=== PATIENT | male | born 2000 | race Two or more races ===

== ENCOUNTER 2023-02-11 13:41 | Outpatient (REF) | payer OTHER, SELFPAY ==
--- NOTE | ~2023-02-11 | MR_ITS ---
EXAMINATION: MR BRAIN WITHOUT AND WITH CONTRAST CLINICAL INFORMATION: Epilepsy. COMPARISON: None. TECHNIQUE: Multiplanar, multisequence imaging of the brain was acquired on a 3 Leslye magnet before and after the intravenous administration of 7 mL of Gadavist. FINDINGS: No diffusion abnormalities are identified to suggest an acute infarct. The ventricles are normal in size. No mass effect or midline shift is seen. No brain parenchymal signal abnormality is noted. No extra-axial fluid collections are seen. The brainstem and cerebellum are normal. There is no abnormal parenchymal or leptomeningeal enhancement. No focal cortical dysplasia or migrational abnormality is seen. The hippocampi are normal in appearance. The gradient refocused acquisition demonstrates no pathologic magnetic susceptibility artifact to indicate underlying acute or chronic blood products. The craniovertebral junction, marrow signal, and midline structures are normal. The orbits and pituitary axis appear normal. The major intracranial flow voids at the level of the picayune of Lang are preserved. The dural venous sinus flow voids are maintained. The mastoid air cells are well aerated. There is mild mucosal thickening in the ethmoid air cells. MR/MR head/brain wo/w con IMPRESSION: Normal study. No epileptogenic focus identified. No hippocampal pathology.
[2023-02-11] MEDS: gadobutroL 7.5 ML VIAL IVPUSH (14:54)
== END 2023-02-11 13:42 | disposition home or self-care (01) ==
LOC: HO.MRI 13:41
PROVIDERS: Visit Provider Psychiatry & Neurology Neurology
DX: G40.909 Epilepsy, unspecified, not intractable, without status epilepticus (principal)
CPT/HCPCS: 70553; A9585

== ENCOUNTER 2024-09-29 12:36 | Outpatient (AMB) | payer OTHER, SELFPAY ==
--- NOTE | 2024-09-29 12:49 | MHC.OFFVIS ---
Intake Visit Reasons: f/u sz Allergies No Known Allergies Allergy (Verified 09/28/24 16:32) HPI Comments Details: 23 yo RH man, originally from [facility] with a few years of schooling, using marijuana for treatment of anxiety, and epilepsy. In 2020, he was found to have generalized seizure at home with generalized convulsion and frothing by his girlfriend. He was taken to [facility] and before that when EMT arrived he had another seizure. Video EEG monitoring at that time revealed generalized slowing. Also, he was using tramadol at that time. He stopped tramadol but continued to have seizure. He had another seizure in May of 2022 when he was not taking medicine. He was last seen in 2022 adn was here today saying that he had 3 seizures yesterday and one in July, while he was taking his meds regularly. He was passing out with seizures. [facility]LY [facility], [facility] Medical History (Updated 09/29/24 @ 13:03 by Ana Severino MD) Epilepsy Seizure disorder Review of Systems Const Details: Constitutional:?No fever, chills, fatigue, weight loss, or night sweats. HEENT:?No headache, vision changes, hearing loss, nasal congestion, sore throat. Neurological:?No dizziness, syncope, seizures, numbness, tingling, weakness, tremors, memory loss. Psychiatric:?No anxiety, depression, mood swings, sleep disturbance, or hallucinations. Endocrine:?No heat/cold intolerance, polydipsia, polyuria, or hair/skin changes. Hematologic/Lymphatic:?No easy bruising, bleeding, or lymphadenopathy. Integumentary (Skin):?No rash, lesions, itching, or color changes. ? Physical Exam Const Other: General: No acute distress. Cardiovascular: Regular rate and rhythm. Respiratory: Clear to auscultation bilaterally. Abdomen: Soft, non-tender, non-distended. Musculoskeletal: Full range of motion. No joint swelling or deformities. Skin: Warm, dry, intact. No rashes or lesions. Neuro Other: Mental Status: Alert and oriented to person, place, and time. Normal attention. Normal spontaneous speech, fluency, and comprehension. No obvious issues with mood and memory. Affect is appropriate. Cranial Nerves: CN II: Visual hall full to confrontation, visual acuity intact. CN III, IV, : Pupils equal, round, reactive to light and accommodation. Extraocular movements are normal. CN V: Facial sensation is normal. CN VII: Facial movements symmetrical. CN VIII: Hearing intact to bedside conversation is normal. CN IX, X: Palate elevates symmetrically. CN XI: Shoulder shrug and head turn symmetrical. CN XII: Tongue midline without atrophy or fasciculations. Motor: Bulk and tone normal in all extremities. No significant muscle weakness in arms and legs. No drift. Reflexes: Deep tendon reflexes 2+ and symmetric. Plantar response down-going bilaterally. Coordination: [id number] and bklc-[id number] testing normal. No dysmetria. Gait and Station: No obvious gait abnormality. No ataxia or instability. Sensory: Intact to light touch, pinprick, and vibration. Romberg is negative. Extrapyramidal: Full facial expressions and blinking. No rigidity. Movements are appropriate with no tremor or abnormality. Speech: Normal; no dysarthria or tremor. Results Reviewed Results Reviewed: EEG at [facility] in May 2021: bifrontal, generalized and somtimes right hemispheric sharp wavesVideo EEG at [facility] in 2020: generalized slowing CT brain WO at [facility] in 2020: WNL. MRI brain WWO at [facility] in 2022: WNL Assessment & Plan Assessment & Plan (1) Epilepsy: Code(s): G40.909 - Epilepsy, unspecified, not intractable, without status epilepticus Category: Medical Qualifiers: Epilepsy type: generalized idiopathic Intractability: intractable Status epilepticus: without status epilepticus Qualified Code(s): G40.319 - Generalized idiopathic epilepsy and epileptic syndromes, intractable, without status epilepticus Plan Young man with intractable epilepsy likely resulting in primary or secondarily generalized seizures. Unfortunately good dose of levetiracetam has not worked for him but he also did not have any obvious side effects. I am adding small dose of oxcarbazepine to provide a drug with slightly different mechanism of action Orders: Orders Oxcarbazepine Today G40.319 - Generalized idiopathic epilepsy and epileptic syndromes, intractable, without status epilepticus Medications: New oxcarbazepine 150 mg PO BID 120 tabs 0RF 60 days levetiracetam 1,000 mg PO Q12H 180 tabs 0RF 90 days Coding Level of Care Code Est Pt Level 4 (54802) Diagnoses Intractable generalized idiopathic epilepsy without status epilepticus G40.319 Epilepsy type: generalized idiopathic Intractability: intractable Status epilepticus: without status epilepticus
== END 2024-09-29 13:17 | disposition home or self-care (01) ==
PROVIDERS: Visit Provider Psychiatry & Neurology Neurology
DX: G40.319 Generalized idiopathic epilepsy and epileptic syndromes, intractable, without status epilepticus (principal)
CPT/HCPCS: 99214

== ENCOUNTER 2024-12-01 12:49 | Outpatient (REF) | payer OTHER, SELFPAY ==
[2024-12-01 15:04] LABS: Folate 6.3 ng/mL (> or = 4.0); Vitamin B12 447 pg/mL (200-900)
[2024-12-04 01:24] LABS: Levetiracetam Keppra 10.9 mcg/mL (6.0-46.0)
== END 2024-12-01 12:50 | disposition home or self-care (01) ==
LOC: HO.LAB 12:49
PROVIDERS: PCP Internal Medicine; Visit Provider Psychiatry & Neurology Neurology
DX: G40.319 Generalized idiopathic epilepsy and epileptic syndromes, intractable, without status epilepticus (principal); Z51.81 Encounter for therapeutic drug level monitoring; Z79.899 Other long term (current) drug therapy
CPT/HCPCS: 36415; 80177; 80339; 82607; 82746

== ENCOUNTER 2024-12-01 12:49 | Outpatient (AMB) | payer OTHER, SELFPAY ==
--- NOTE | 2024-12-01 13:01 | A.OFFVIS_ITS ---
Intake Visit Reasons: 2 mnts f/u for Seizures Allergies No Known Allergies Allergy (Verified 09/28/24 16:32) HPI Comments Details: 24 yo RH man, originally from [facility] with intractable epilepsy. With a few years of schooling, using marijuana for treatment of anxiety, and epilepsy. In 2020, he was found to have generalized seizure at home with generalized convulsion and frothing by his girlfriend. He was taken to [facility] and before that when EMT arrived he had another seizure. Video EEG monitoring at that time revealed generalized slowing. Also, he was using tramadol at that time. He stopped tramadol but continued to have seizure. He had another seizure in May of 2022 when he was not taking medicine. He is presenting with cognitive impairment and follow-up for epilepsy. He reports a significant tendency toward forgetfulness, significantly impacting his daily life. The patient relates these cognitive problems to his diagnosed condition involving the central nervous system, indicated as CVS. He is being managed for epilepsy with Levetiracetam at a dosage of 1000 mg twice daily. The patient denies any recent seizures, suggesting a degree of control over seizure activity. Despite this, he raises concerns over cognitive symptoms, such as forgetfulness and feeling fatigued. Recently performed brain imaging indicated no significant anomalies, providing no direct correlation with the mentioned cognitive issues. [facility] Medical History (Updated 12/01/24 @ 13:05 by Ana Severino MD) Epilepsy Seizure disorder Review of Systems Const Details: - Neurological: Reports forgetfulness; Denies recent seizures Physical Exam Neuro Other: Mental Status: Alert and oriented to person, place, and time. Normal attention. Normal spontaneous speech, fluency, and comprehension. Cranial Nerves: CN II: Visual hall full to confrontation, visual acuity intact. CN III, IV, : Pupils equal, round, reactive to light and accommodation. Extraocular movements are normal. CN V: Facial sensation is normal. CN VII: Facial movements symmetrical. CN VIII: Hearing intact to bedside conversation is normal. CN IX, X: Palate elevates symmetrically. CN XI: Shoulder shrug and head turn symmetrical. CN XII: Tongue midline without atrophy or fasciculations. Extrapyramidal: Full facial expressions and blinking. No rigidity. Movements are appropriate with no tremor or abnormality. Speech: Normal; no dysarthria or tremor. Assessment & Plan Assessment & Plan (1) Epilepsy: Comment: [place] [facility] [place]: WNL EEG at off in May 2021: bifrontal, generalized and sometimes right hemispheric sharp waves Video EEG at [facility] in 2020: generalized slowing CT brain WO at [facility] in 2020: WNL. Code(s): G40.909 - Epilepsy, unspecified, not intractable, without status epilepticus Category: Medical Qualifiers: Epilepsy type: generalized idiopathic Intractability: intractable Status epilepticus: without status epilepticus Qualified Code(s): G40.319 - Generalized idiopathic epilepsy and epileptic syndromes, intractable, without status epilepticus Plan During the visit, I discussed the patient's ongoing concerns about cognitive impairment potentially linked to his known central nervous system disorder. I acknowledged his current treatment success with no recent seizures and validated his concerns about forgetfulness. It was agreed to continue his Levetiracetam without changes. I informed the patient of the normal brain scan findings and reassured him that further cognitive assessment might be considered if symptoms persist or worsen. Orders: Orders Levetiracetam Keppra Today G40.319 - Generalized idiopathic epilepsy and epileptic syndromes, intractable, without status epilepticus Vitamin B12 and Folate Today G40.319 - Generalized idiopathic epilepsy and epileptic syndromes, intractable, without status epilepticus Medications: Refilled levetiracetam 1,000 mg PO Q12H 180 tabs 0RF 90 days Coding Level of Care Code Est Pt Level 4 (05291) Diagnoses Intractable generalized idiopathic epilepsy without status epilepticus G40.319 Epilepsy type: generalized idiopathic Intractability: intractable Status epilepticus: without status epilepticus
--- OUTSIDE RECORDS SUMMARY | 2024-12-01 15:14 | XMS_ITS ---
Author Name [facility] Organization Unknown Care Team Organization Name Specialty Phone Email Start Date End Da te [facility] 02/05/20222023
== END 2024-12-01 13:10 | disposition home or self-care (01) ==
LOC: HO.HSM 12:50
PROVIDERS: PCP Internal Medicine; Visit Provider Psychiatry & Neurology Neurology
DX: G40.319 Generalized idiopathic epilepsy and epileptic syndromes, intractable, without status epilepticus (principal)
CPT/HCPCS: 99214